=== PATIENT | female | born 1970 | race Caucasian/White ===

== ENCOUNTER 2017-02-01 17:26 | Emergency (ER) | payer SELFPAY ==
[2017-02-01 18:56] LABS: BASOPHILS 0.6 % (0-2); EOSINOPHILS 2.6 % (0-7); HEMATOCRIT 38.9 % (36.0-48.0); HEMOGLOBIN 12.6 g/dL (12-16); IMMATURE GRANULOCYTES 0.1 % (0-5); LYMPHOCYTES 24.9 % (15-50); MCH 29.3 pg (26.0-34.0); MCHC 32.4 g/dL (31.0-37.0); MCV 90.5 fL (80.0-100.0); MEAN PLATELET VOLUME 12.2 fL (7.4-10.4); MONOCYTES 5.5 % (2-11); NEUTROPHILS 66.3 % (40-80); PLATELET COUNT 261 10x3/uL (130-400); RDW 14.2 % (11.5-14.5); WBC 8.4 10x3/uL (4.8-10.8)
[2017-02-01 19:23] LABS: ALBUMIN 3.7 g/dL (3.4-5.0); ALKALINE PHOSPHATASE 66 U/L (46-116); ALT (SGPT) 14 U/L (10-68); BILIRUBIN - TOTAL 0.16 mg/dL (0.2-1.3); CALC OSMOLALITY 278 mosm/kg (275-300); CALCIUM 8.6 mg/dL (8.5-10.1); CARBON DIOXIDE 22.6 mmol/L (21.0-32.0); CHLORIDE - SERUM 106 mmol/L (98-107); CREATININE - SERUM 0.8 mg/dL (0.6-1.3); GLUCOSE 98 mg/dL (74-106); POTASSIUM - SERUM 3.3 mmol/L (3.5-5.1); PROTEIN - SERUM 6.7 g/dL (6.4-8.2); SODIUM 141 mmol/L (136-145); UREA NITROGEN 8 mg/dL (7-18); eGFR NON AFRICAN AMERICAN 81 mL/min (90-120)
[2017-02-01 19:37] LABS: CHOL - HDL RATIO 2.3 ratio (2.3-4.1); CHOLESTEROL, TOTAL 149 mg/dL (0-200); CKMB 1.4 U/L (0.0-3.6); CREATINE KINASE 88 UL (21-215); HDL CHOLESTEROL 66 mg/dL (32-96); LDL CHOLESTEROL 70 mg/dL (0-100); LDL-HDL RATIO 1.1 ratio (1.5-3.5); TRIGLYCERIDE 67 mg/dL (30-200)
[2017-02-01 19:41] LABS: TROPONIN-I < 0.017 ng/mL (0.000-0.060)
== END 2017-02-01 20:06 | disposition home or self-care (01) ==
LOC: D.ER 17:26
PROVIDERS: Emergency Medicine
DX: R07.9 Chest pain, unspecified (principal); I10 Essential (primary) hypertension; R06.00 Dyspnea, unspecified; R21 Rash and other nonspecific skin eruption; F17.200 Nicotine dependence, unspecified, uncomplicated

== ENCOUNTER 2018-11-13 11:52 | Emergency (ER) | payer MEDICAID ==
[~2018-11-13] VITALS: Ht 167.6 cm; Wt 75.0 kg
[2018-11-13 11:55] VITALS: Ht 167.6 cm; Wt 75.0 kg
[2018-11-13] MEDS ORDERED: LISINOPRIL-HCT1 EAC4 PO (11:58)
[2018-11-13] MEDS ORDERED: COREG6.25 MG PO (11:58)
[2018-11-13 12:17] LABS: BASOPHILS 0.2 % (0-2); EOSINOPHILS 0.8 % (0-7); HEMATOCRIT 42.6 % (36.0-48.0); HEMOGLOBIN 14.3 g/dL (12-16); IMMATURE GRANULOCYTES 0.2 % (0-5); LYMPHOCYTES 8.4 % (15-50); MCH 29.9 pg (26.0-34.0); MCHC 33.6 g/dL (31.0-37.0); MCV 88.9 fL (80.0-100.0); MEAN PLATELET VOLUME 12.2 fL (7.4-10.4); MONOCYTES 5.8 % (2-11); NEUTROPHILS 84.6 % (40-80); PLATELET COUNT 261 10x3/uL (130-400); RBC 4.79 10x6/uL (4.00-5.40); RDW 14.7 % (11.5-14.5); WBC 16.1 10x3/uL (4.8-10.8)
[2018-11-13 12:39] LABS: ALBUMIN 3.8 g/dL (3.4-5.0); ANION GAP 14.9 mmol/L (8-16); BILIRUBIN - TOTAL 0.19 mg/dL (0.2-1.3); CALCIUM 8.9 mg/dL (8.5-10.1); CARBON DIOXIDE 21.7 mmol/L (21.0-32.0); CREATININE - SERUM 1.4 mg/dL (0.6-1.3); POTASSIUM - SERUM 3.6 mmol/L (3.5-5.1); PROTEIN - SERUM 7.4 g/dL (6.4-8.2)
[2018-11-13 14:49] LABS: APPEARANCE SL CLDY (CLEAR); BACTERIA MANY /hpf (NONE SEEN); BILIRUBIN NEGATIVE (NEGATIVE); COLOR YELLOW (YELLOW); EPITHELIAL CELLS 0-5 /hpf (0-5); GLUCOSE NEGATIVE (NEGATIVE); KETONE NEGATIVE (NEGATIVE); MUCUS <1+ /lpf (NONE SEEN); NITRITE POSITIVE (NEGATIVE); PROTEIN NEGATIVE (NEGATIVE); SPECIFIC GRAVITY 1.015 (1.005-1.020); UROBILINOGEN NORMAL (NORMAL); WHITE CELLS - URINE 0-5 /hpf (0-5)
[2018-11-13] MEDS ORDERED: ZANTAC300 MG PO (15:36)
[2018-11-13] MEDS ORDERED: ZOFRAN ODT4 MG/UDTAB PO (15:36)
[2018-11-13] MEDS ORDERED: KEFLEX500 MG PO (15:36)
[2018-11-13] MEDS ORDERED: MACROBID100 MG PO (15:36)
[2018-11-13] MEDS ORDERED: FLORASTOR250 MG PO (15:36)
[2018-11-13 16:19] VITALS: BP 124/64
== END 2018-11-13 16:20 | disposition home or self-care (01) ==
LOC: D.ER 11:52
PROVIDERS: Family Medicine
DX: R10.9 Unspecified abdominal pain (principal); E27.8 Other specified disorders of adrenal gland; K21.9 Gastro-esophageal reflux disease without esophagitis; D72.829 Elevated white blood cell count, unspecified; R16.0 Hepatomegaly, not elsewhere classified; N28.89 Other specified disorders of kidney and ureter; N39.0 Urinary tract infection, site not specified

== ENCOUNTER 2018-11-22 12:15 | Outpatient (CLI) | payer MEDICAID ==
[~2018-11-22] VITALS: Ht 167.6 cm; Wt 75.0 kg
[~2018-11-22 12:15] MED LIST: COREG6.25 MG PO; FLORASTOR250 MG PO; KEFLEX500 MG PO; LISINOPRIL-HCT1 EAC4 PO; MACROBID100 MG PO; ZANTAC300 MG PO; ZOFRAN ODT4 MG/UDTAB PO
[2018-11-22] MEDS ORDERED: IMODIUM2 MG PO (13:12)
[2018-11-22] MEDS ORDERED: PEPTO-BISM525 MG/15 PO (13:13)
[2018-11-22 13:14] LABS: BASOPHILS 0.5 % (0-2); EOSINOPHILS 1.9 % (0-7); HEMATOCRIT 39.8 % (36.0-48.0); HEMOGLOBIN 13.3 g/dL (12-16); IMMATURE GRANULOCYTES 0.2 % (0-5); LYMPHOCYTES 24.2 % (15-50); MCH 29.4 pg (26.0-34.0); MCHC 33.4 g/dL (31.0-37.0); MCV 87.9 fL (80.0-100.0); MEAN PLATELET VOLUME 11.7 fL (7.4-10.4); MONOCYTES 5.9 % (2-11); NEUTROPHILS 67.3 % (40-80); PLATELET COUNT 293 10x3/uL (130-400); RBC 4.53 10x6/uL (4.00-5.40); RDW 14.8 % (11.5-14.5); WBC 6.4 10x3/uL (4.8-10.8)
[2018-11-22 13:27] VITALS: BP 102/75; Ht 167.6 cm; Wt 75.0 kg
[2018-11-22 13:34] LABS: ANION GAP 17.2 mmol/L (8-16); CALCIUM 8.8 mg/dL (8.5-10.1); CARBON DIOXIDE 17.6 mmol/L (21.0-32.0); CREATININE - SERUM 1.3 mg/dL (0.6-1.3); POTASSIUM - SERUM 3.8 mmol/L (3.5-5.1)
[2018-11-22 13:48] LABS: PROTIME 14.1 SECONDS (11.6-15.0)
[2018-11-22 13:49] LABS: INR 1.1 (0.85-1.17)
[2018-11-22 13:54] LABS: APTT 28.2 SECONDS (22.8-39.4)
--- NOTE | 2018-11-22 15:35 | NUR ---
RECEIVED FROM SPECIALS ACCOMPANIED BY FAMILY. DRESSING CDI TO RIGHT SIDE. LEMON TABLE [place] BROUGHT TO PATIENT. PATIENT SENT TO GET HER SOMETHING TO EAT RELATING NOTHING AGAINST HOSPITAL FOOD BUT I'M STARVING.
--- NOTE | 2018-11-22 16:05 | NUR ---
EATING A REGULAR DIET BROUGHT BY HER . DRESSING CDI TO RIGHT SIDE.
--- NOTE | 2018-11-22 16:35 | NUR ---
LYING ON LEFT SIDE. DRESSING CDI. FAMILY AT BEDSIDE. DENIES NEEDS.
--- NOTE | 2018-11-22 17:05 | NUR ---
LYING WITH EYES CLOSED. AROUSED WHEN NURSE ENTERED. FAMILY AT BEDSIDE. DRESSING CDI TO RIGHT SIDE.
--- NOTE | 2018-11-22 18:34 | NUR ---
PAGE PLACED TO DR MARTINEZ THROUGH ANSWERING SERVICE REGARDING PATIENT'S BLOOD PRESSURE OF 86/49. PATIENT AWAKE, ALERT, REPORTS "A LITTLE SORENESS" AT PUNCTURE SITE. PULSE 73.
--- NOTE | 2018-11-22 18:58 | NUR ---
DR MARTINEZ CALLS REGARDING PAGE. REPORTED BLOOD PRESSURE READINGS TO MICHELLE AND PATIENT'S CONDITION. ORDER RECEIVED AND NOTED FOR STAT HEMOGLOBIN AND HEMATOCRIT.
[2018-11-22 19:19] LABS: HEMATOCRIT 37.7 % (36.0-48.0); HEMOGLOBIN 12.6 g/dL (12-16)
--- NOTE | 2018-11-22 19:25 | NUR ---
DR MARTINEZ NOTIFIED BY PHONE OF PATIENT'S HEMOGLOBIN AND HEMATOCRIT RESULTS. NO CHANGE IN PATIENT'S CONDITION, RIGHT FLANK DRESSING C/D/I, AREA SOFT, NONTENDER. PATIENT REPORTS "A LITTLE SORENESS" AT PUNCTURE SITE WHEN ASKED. COLOR PINK. BLOOD PRESSURE 96/52. PULSE 70. DR MARTINEZ STATES "PATIENT MAY GO HOME, JUST TELL HER IF SHE HAS PAIN AT THE SITE OR ANY SYMPTOMS TO GO STRAIGHT TO THE EMERGENCY ROOM." DISCHARGE INSTRUCTIONS REVIEWED WITH PATIENT AND FAMILY. RIGHT HAND PIV DC'D WITH TIP INTACT. PATIENT DRESSING IN PERSONAL CLOTHING 1937 PATIENT INSTRUCTED THAT IF SHE HAS PAIN AT THE SITE BEYOND A SLIGHT SORENESS OR IF SHE HAS PALENESS, HEART RACING, WEAKNESS, OR DIZZINESS TO IMMEDIATELY REPORT TO THE EMERGENCY ROOM, PATIENT AND FAMILY STATE UNDERSTANDING. DISCHARGED HOME VIA WHEELCHAIR TO PRIVATE VEHICLE WITH SPOUSE
== END 2018-11-22 19:38 | disposition home or self-care (01) ==
LOC: D.SP 12:15 → D.CT 13:00 → D.SP 19:38
PROVIDERS: General Practice; Radiology Vascular & Interventional Radiology; ATTEND Legal Medicine
DX: K76.9 Liver disease, unspecified (principal); Z01.812 Encounter for preprocedural laboratory examination

== ENCOUNTER 2019-02-20 13:07 | Emergency (ER) | payer MEDICAID ==
[~2019-02-20] VITALS: Ht 167.6 cm; Wt 75.0 kg
[~2019-02-20 13:07] MED LIST changes: +IMODIUM2 MG PO; +PEPTO-BISM525 MG/15 PO
[2019-02-20 13:28] VITALS: Ht 167.6 cm; Wt 75.0 kg
[2019-02-20] MEDS ORDERED: HYDROCODONE-A1 UDTA2 PO (15:22)
[2019-02-20 16:15] VITALS: BP 128/70
== END 2019-02-20 16:30 | disposition home or self-care (01) ==
LOC: D.ER 13:07
DX: S79.912A Unspecified injury of left hip, initial encounter (principal); W01.0XXA Fall on same level from slipping, tripping and stumbling without subsequent striking against object, initial encounter; I10 Essential (primary) hypertension; F17.210 Nicotine dependence, cigarettes, uncomplicated